=== PATIENT | male | born 1965 | race Two or more races ===

== ENCOUNTER → 2018-11-05 | Day surgery (SDC) | payer OTHER ==
[~2018-11-05] MED LIST: GLUCOTROL XL5 MG PO; HYDROCHLOROTHIA25 MG PO; LIPITOR80 MG PO; NEURONTIN800 MG PO; NORVASC5 MG PO; PERCOCET 5-3251 EACH PO; PRILOSEC OTC20 MG PO; RECTICARE30 GM TOP; SINGULAIR10 MG PO; TOPROL XL200 MG PO; ULTRACET PO; VITAMIN D5000 UNIT PO; XARELTO20 MG PO; ZESTRIL20 MG PO
== END | disposition home or self-care (01) ==
LOC: ADM 10-28 09:00 → CIR.AMB 05:10
DX: K60.1 Chronic anal fissure (principal); K62.4 Stenosis of anus and rectum